=== PATIENT | male | born 1980 | race Caucasian/White ===

== ENCOUNTER 2021-07-28 09:12 | Outpatient (CLI) | payer BC ==
[2021-07-28] MEDS ORDERED: ISOVUE-370 76% 1 ML ONE (11:54)
== END 2021-07-28 09:13 | disposition home or self-care (01) ==
LOC: BICCT 09:12
PROVIDERS: ATTEND Internal Medicine
DX: R10.31 Right lower quadrant pain (principal); R93.3 Abnormal findings on diagnostic imaging of other parts of digestive tract
CPT/HCPCS: 74177